=== PATIENT | female | born 1955 | race Caucasian/White ===

== ENCOUNTER 2019-06-23 06:32 | Day surgery (SDC) | payer OTHER ==
[2019-06-23] MEDS ORDERED: Sodium Chloride 0.9% 1,000 ML IV SCH (07:15)
[2019-06-23] MEDS ORDERED: Propofol 200 MG/20 ML SDV ONE ×2 (07:16→08:49)
[2019-06-23] MEDS ORDERED: fentaNYL 100 MCG/2 ML SDV ONE (07:16)
[2019-06-23] MEDS ORDERED: Midazolam 1 MG/ML 2 ML SDV ONE (07:16)
[2019-06-23 10:09] VITALS: BP 132/93; PULSE 100
--- NOTE | 2019-06-23 11:33 | OR ---
DATE OF PROCEDURE: 06/23/2019 SURGEON: Ean Walker MD PROCEDURE: Colonoscopy. FINDINGS: Diverticulosis, mild. COMPLICATIONS: None. DOCKET SPECIALIST: None. ANESTHESIA: MAC. PREOPERATIVE DIAGNOSIS: Screening colonoscopy. POSTOPERATIVE DIAGNOSIS: Screening colonoscopy. RISKS: Risks, benefits, alternatives, and limitations including, but not limited to infection, bleeding, and perforation were explained to the patient, who wished to proceed. PROCEDURE IN DETAIL: The patient was placed in left lateral decubitus position. Digital rectal exam was performed without abnormality. The scope was introduced and advanced atraumatically to the ileocecal valve. A photo was taken. The scope was brought back to the ascending, transverse, descending colon, and retroflexed. No evidence of old or new blood. No masses. No polyps. No colitis. Diverticulosis would be described as very mild, limited to sigmoid colon, and without evidence of diverticulitis or bleeding. The patient tolerated the procedure well. Ean Walker MD /[id number]
--- NOTE | 2019-06-23 11:39 | OR ---
DATE OF PROCEDURE: 06/23/2019 SURGEON: Ean Walker MD PROCEDURES: 1. Colonoscopy. 2. Hemorrhoid banding. FINDINGS: 1. Diverticulosis, very mild. 2. Prominent grade 2 hemorrhoid requiring banding. RISKS: Risks, benefits, alternatives, and limitations including, but not limited to infection, bleeding, chronic pain, wound formation, and other risks not listed here including perforation were explained to the patient, who wished to proceed. PROCEDURE IN DETAIL: The patient was placed in left lateral decubitus position. Digital rectal exam was performed and a protruding hemorrhoid was noted. The scope was introduced and advanced atraumatically to the ileocecal valve. A photo was taken. The scope was brought back to the ascending, transverse, descending colon, and retroflexed. The patient had 1 to 2 ticks. No colitis. No evidence of bleeding. No abnormalities. No polyps. On retroflexion, the single hemorrhoid was noted and was banded successfully. The patient tolerated the procedure well. Ean Walker MD /[id number]
== END 2019-06-23 10:30 | disposition home or self-care (01) ==
LOC: JP.SDS 06:32
PROVIDERS: ATTEND Surgery
DX: Z12.11 Encounter for screening for malignant neoplasm of colon (principal); K64.1 Second degree hemorrhoids; K57.30 Diverticulosis of large intestine without perforation or abscess without bleeding; Z88.0 Allergy status to penicillin
CPT/HCPCS: 45398; J2250; J2704; J3010; J7030